=== PATIENT | male | born 1950 | race Hispanic/Latino ===

== ENCOUNTER 2022-04-29 08:24 | Emergency (ER) | payer MEDICARE ==
[2022-04-29] MEDS ORDERED: SODIUM CHLORIDE 0.9% 1000 ML 1,000 ML IV ONE (08:40)
[2022-04-29 09:02] LABS: ABG Base Excess -15.6 mmol/L (-2.0-3.0); ABG HCO3 18.9 mmol/L (20.0-26.0); ABG Methemoglobin 0.5 % (0.0-1.5); ABG Oxygen Saturation 88.8 % (95.0-99.0); ABG PCO2 103.2 mm Hg; ABG PO2 100.2 mm Hg (80.0-90.0)
[2022-04-29] MEDS ORDERED: NORepinephrine/NS 8 MG-250 ML 8 MG/250 ML INFUS..BTL IV ONE (09:19)
[2022-04-29 09:22] LABS: ABG PH 6.882 pH Units (7.350-7.450)
--- NOTE | 2022-04-29 09:28 | XRay Report ---
CHEST 1 VIEW 04/29/2022 9:06 AM INDICATION / CLINICAL INFORMATION: Altered Mental Status. COMPARISON: None available. FINDINGS: SUPPORT DEVICES: None. HEART / MEDIASTINUM: No significant abnormality. LUNGS / PLEURA: No significant pulmonary or pleural abnormality. No pneumothorax. ADDITIONAL FINDINGS: No significant additional findings. IMPRESSION: 1. No acute findings. Signer Name: Yamileth Peterson MD Signed: 04/29/2022 9:24 AM Workstation Name: [id number]
--- NOTE | 2022-04-29 09:50 | Emergency Department Report ---
ED CPR HPI - General Stated Complaint: CARDIAC ARREST Time Seen by Provider: 04/29/22 08:40 Source: family, EMS Mode of arrival: Stretcher Limitations: Altered Mental Status - History of Present Illness MD Complaint: found unresponsive, stopped breathing -: hour(s) Place: home Bystander CPR Performed: Yes AED Applied by Bystander/Foot And Ankle Surgeon: Yes Shock Advised: No Initial Findings in the Field: unresponsive, no pulse, PEA ROSC in the Field: No Associated Injuries: No Treatments Prior to Arrival: other airway device, chest compressions, epinephrine mgs # (3) - Related Data Allergies Allergy/AdvReac Type Severity Reaction Status Date / Time No Known Allergies Allergy Unverified 04/29/22 09:20 ED Review of Systems ROS: Stated complaint: CARDIAC ARREST Other details as noted in HPI Comment: Unobtainable due to pts medical conditions ED Past Medical Hx - Past Medical History Previous Medical History?: No Hx Hypertension: Yes ED Physical Exam - General Limitations: Altered Mental Status General appearance: obtunded - Eye Eye exam: Present: other (dilated foxed ) - ENT ENT exam: Present: normal orophraynx - Neck Neck exam: Present: normal inspection - Respiratory Respiratory exam: Present: other (no sponta breathing ) - Cardiovascular Cardiovascular Exam: Present: other (no spont pulse ) - GI/Abdominal GI/Abdominal exam: Present: soft - Expanded Neurological Exam Expanded Best Eye Response (Dimock): (1) no response Best Motor Response (Alina): (1) no motor response Best Verbal Response (Alina): (1) no verbal response Alina Total: 3 - EJ/Peripheral Line Neck L Indications: nurses unable to establis Skin Cleansed in Sterile Fashion: Yes Size: 20 Dressing Placed: Tegaderm Patient Tolerated Procedure: well, no complications - Intubation Time Out Performed: No Laryngoscope: fiberoptic video scope Size: 3 ET Tube Size: 7.5 Tube Secured Depth (cm): 24 Tube Secured Location: lips Tube Placement Confirmation: visualized tube passing t, no breath sounds over epi Patient Tolerated Procedure: well, no complications Intubation Complications: none ED Medical Decision Making - Radiology Data Radiology results: report reviewed - Medical Decision Making intubated on arrival obtained 20 left EJ , bicarb calcium and epi given ROSc , multiple times started on dopamine and epi , intermiitent rosc and codes again prounced at 0944 Critical care attestation.: If time is entered above; I have spent that time in minutes in the direct care of this critically ill patient, excluding procedure time. ED Disposition Clinical Impression: Cardiac arrest Disposition: 20 Is pt being admited?: No Does the pt Need Aspirin: No Condition: Undetermined Instructions: CPR, Adult
[2022-04-29] MEDS ORDERED: SODIUM BICARBONATE 150 MEQ in DEXTROSE 5% IN WATER 1,000 ML IV SCH (10:00)
[2022-04-29] MEDS ORDERED: NORepinephrine/NS 8 MG-250 ML 8 MG/250 ML INFUS..BTL IV SCH (10:00)
[2022-04-29 12:07] VITALS: BP 46/23
[2022-04-29] MEDS ORDERED: SODIUM BICARB 8.4% 50 MEQ/50 ML SYRINGE IV ONE (15:08)
[2022-04-29] MEDS ORDERED: CALCIUM CHLORIDE 1,000 MG/10 ML SYRINGE IV ONE (15:08)
[2022-04-29] MEDS ORDERED: ATROPINE 0.1% (1 MG/10 ML) CARDIAC SYRINGE ONE (15:08)
[2022-04-29] MEDS ORDERED: EPINEPHrine 1 MG/10 ML SYRINGE ONE ×2 (15:08→20:49)
[2022-04-29] MEDS ORDERED: DOPamine DRIP 800 MG/D5W 250ML PreMix IV ONE (15:08)
== END 2022-04-29 15:05 ==
LOC: ED 08:24
DX: I46.9 Cardiac arrest, cause unspecified (principal)
CPT/HCPCS: 31500; 71045; 82803; 99285; J0171; J0461; J1265; J2354; J3490; J7070; 94002